=== PATIENT | female | born 1995 | race Caucasian/White ===

== ENCOUNTER 2023-08-13 18:55 | Inpatient (IN) | payer BC ==
[2023-08-13] MEDS ORDERED: hydrALAZINE 20 MG/ML VIAL ONE (19:23)
[2023-08-13] MEDS ORDERED: Magnesium 2 GM/50 ML BAG (IN WATER) ONE (19:23)
[2023-08-13] MEDS ORDERED: Labetalol HCl 100 MG/20 ML VIAL SLOW IVP PRN ×2 (19:52)
[2023-08-13] MEDS ORDERED: Ondansetron PF 4 MG/2 ML Vial IVP PRN (19:52)
[2023-08-13] MEDS ORDERED: Promethazine HCl 25 MG/ML VIAL IM PRN (19:52)
[2023-08-13] MEDS ORDERED: Lorazepam 2 MG/ML VIAL SLOW IVP PRN (19:52)
[2023-08-13] MEDS ORDERED: Calcium Gluc 4.6 MEQ/10 ML (100 MG/ML) SLOW IVP PRN (19:52)
[2023-08-13] MEDS ORDERED: hydrALAZINE 20 MG/ML VIAL SLOW IVP PRN ×2 (19:52)
[2023-08-13] MEDS: Magnesium Sulfate 20 gm/500 ml 20 GM/500 ML BAG IVPB SCH (20:00)
[2023-08-13] MEDS: Lactated Ringer's 1,000 ML IV SCH (20:00)
[2023-08-13] MEDS: Labetalol HCl 100 MG/20 ML VIAL SLOW IVP PRN (20:17)
[2023-08-13] MEDS: Acetaminophen 500 MG TAB PO PRN (20:23)
[2023-08-13 20:33] LABS: #Basophils 0.02 10x3/uL (0.0-0.2); #Monocytes 0.54 10x3/uL (0.0-1.1); #Neutrophils 5.11 10x3/uL (1.5-8.4); %Basophils 0.3 % (0.0-2.0); %Eosinophils 3.8 % (0.0-6.0); %Lymphocytes 24.5 % (18.0-47.0); %Monocytes 6.8 % (0.0-10.0); %Neutrophils 64.3 % (40.0-75.0); Hematocrit 32.8 % (34.9-44.5); Hemoglobin 11.1 g/dL (12.0-15.5); Mean Corpuscular HGB CONC 33.8 g/dL (32.0-36.0); Mean Corpuscular Hemoglobin 31.1 pg (27.0-33.0); Mean Corpuscular Volume 91.9 fL (81.6-98.3); Mean Platelet Volume 10.3 fL (7.4-10.4); Platelet Count 278 10x3/uL (150-450); RBC Distribution Width 14.2 % (11.5-14.5); Red Blood Cell (RBC) Count 3.57 10x6/uL (3.90-5.03); White Blood Cell (WBC) Count 7.9 10x3/uL (3.5-10.5)
[2023-08-13 20:39] LABS: ALT (SGPT) 25 U/L (8-55); AST (SGOT) 45 U/L (5-34); Albumin 2.8 g/dL (3.5-5.0); Alkaline Phosphatase 83 U/L (40-110); Anion Gap 16 mmol/L (10-20); BUN (Urea Nitrogen) 11 mg/dL (7.0-18.7); Bilirubin, Total 0.3 mg/dL (0.2-1.2); Calc. Creatinine Clearance 0 mL/min (70-130); Calcium 9.8 mg/dL (7.8-10.44); Carbon Dioxide 22 mmol/L (22-29); Chloride 105 mmol/L (98-107); Estimated GFR 118; Globulin 3.9 g/dL (2.4-3.5); Glucose 91 mg/dL (70-105); Protein, Total 6.7 g/dL (6.0-8.3); Sodium 139 mmol/L (136-145)
[2023-08-13 21:18] VITALS: BMI 36.8
[2023-08-13] MEDS: Labetalol HCl 200 MG TAB PO SCH (21:23)
[2023-08-13] MEDS: Enoxaparin 40 MG (0.4 mL) SYRINGE SC SCH (21:25)
[2023-08-14] MEDS: Labetalol HCl 200 MG TAB PO SCH (09:03)
[2023-08-14] MEDS: Enoxaparin 40 MG (0.4 mL) SYRINGE SC SCH (09:03)
[2023-08-14] MEDS: Acetaminophen 500 MG TAB PO PRN (11:35)
[2023-08-15] MEDS ORDERED: Tranexamic Acid 1,000 MG/10 ML VIAL IVP PRN (06:14)
[2023-08-15] MEDS ORDERED: Carboprost 250 MCG/ML AMP IM PRN (06:14)
[2023-08-15] MEDS ORDERED: Diphenoxylate HCl/Atropine Tablet PO PRN (06:14)
[2023-08-15] MEDS ORDERED: Misoprostol 200 MCG TAB PR PRN (06:14)
[2023-08-15] MEDS ORDERED: Famotidine/PF 20 mg/2ml Vial SLOW IVP PRN (06:15)
[2023-08-15] MEDS ORDERED: Azithromycin 500 MG in Sodium Chloride 0.9% 250 ML 250 ML IVPB SCH (06:15)
[2023-08-15] MEDS ORDERED: Bicitra 30 ML UDCUP PO PRN (06:15)
[2023-08-15] MEDS ORDERED: CEFAZOLIN 2 GM in Sodium Chloride 0.9% 100 ML IVPB SCH (06:15)
[2023-08-15] MEDS ORDERED: Oxytocin 30 units/NS 500 ML 500 ML IV SCH (06:15)
[2023-08-15] MEDS ORDERED: Bisacodyl 10 MG SUPP PR PRN (07:08)
[2023-08-15] MEDS ORDERED: Lanolin Ointment 7 GM TUBE TOP PRN (07:08)
[2023-08-15] MEDS ORDERED: Ibuprofen 800 MG TAB PO PRN (07:08)
[2023-08-15] MEDS: Prenatal Vitamin 1 TAB PO SCH (09:56)
[2023-08-15 11:40] VITALS: BP 152/74; TEMP 98.5
== END 2023-08-15 12:30 | disposition home or self-care (01) | DRG 776 ==
LOC: CSHERS 18:55 → CSHLD 20:02 → CSHPP 08-14 21:58
PROVIDERS: ADMIT Obstetrics & Gynecology; ATTEND Obstetrics & Gynecology
DX: O14.95 Unspecified pre-eclampsia, complicating the puerperium (principal); O99.345 Other mental disorders complicating the puerperium; O90.89 Other complications of the puerperium, not elsewhere classified; R74.01 Elevation of levels of liver transaminase levels; F41.9 Anxiety disorder, unspecified; Z88.8 Allergy status to other drugs, medicaments and biological substances; Z79.899 Other long term (current) drug therapy
CPT/HCPCS: 80053; 85025; 96374; 96375; 99285; J0360; J1650; J3475; J7120